=== PATIENT | female | born 1950 | race Caucasian/White ===

== ENCOUNTER 2017-04-24 21:22 | Emergency (ER) | payer MEDICARE, OTHER ==
[2017-04-24] MEDS ORDERED: Triple Antibiotic Oint 1 GM Packet ONE (22:01)
[2017-04-24] MEDS ORDERED: Amoxicillin/Potassium Clav 875 MG TAB ONE (22:02)
[2017-04-24] MEDS ORDERED: Adacel (T-DAP) 0.5 ML VIAL ONE (22:02)
== END 2017-04-24 22:20 | disposition home or self-care (01) ==
LOC: BURERS 21:22
DX: S60.351A Superficial foreign body of right thumb, initial encounter (principal); M81.0 Age-related osteoporosis without current pathological fracture; Z23 Encounter for immunization; W45.8XXA Other foreign body or object entering through skin, initial encounter
CPT/HCPCS: 90471; 90715; J2001